=== PATIENT | male | born 1965 | race Caucasian/White ===

== ENCOUNTER 2018-01-01 10:30 | Emergency (ER) | payer MEDICAID ==
[2018-01-01] MEDS: DIPHTH/TET/ACEL PERTUSS (ADULT) 0.5 ML VIAL IM* (11:44)
== END 2018-01-01 13:15 | disposition home or self-care (01) ==
LOC: FTE 13:15
DX: S52.614A Nondisplaced fracture of right ulna styloid process, initial encounter for closed fracture (principal); F17.210 Nicotine dependence, cigarettes, uncomplicated; W01.0XXA Fall on same level from slipping, tripping and stumbling without subsequent striking against object, initial encounter; Y92.89 Other specified places as the place of occurrence of the external cause
CPT/HCPCS: 29125; 73110-RT; 90471; 90715; 99283-25